=== PATIENT | female | born 1995 | race Caucasian/White ===

== ENCOUNTER 2016-05-21 18:16 | Emergency (ER) | payer OTHER ==
[~2016-05-21] VITALS: Ht 160 cm; Wt 53.6 kg
[2016-05-21 18:19] VITALS: Ht 160 cm; Wt 53.6 kg
[2016-05-21] MEDS ORDERED: ONDANSETRON INJ 2 MG/ML 2 ML VIAL IV STA (18:43)
[2016-05-21] MEDS ORDERED: SODIUM CHLORIDE 0.9% 1000ML 1,000 ML IV STA (18:43)
[2016-05-21] MEDS ORDERED: PRZC/10 PO (18:52)
[2016-05-21 19:04] VITALS: O2SAT 99
[2016-05-21 19:09] LABS: BASO % 0.2 %; BASO ABS # 0.03 K/uL (0-0.2); COMPLETE YES; EOS % 0.2 %; HEMATOCRIT 39.6 % (37-47); IG% 0.3 %; LYMPH % 10.7 %; LYMPH ABS # 1.39 K/uL (1.2-3.4); MEAN CELL VOLUME 82.3 fL (80-100); MEAN CORPUSCULAR HEMOGLOBIN 28.3 pg (25-34); MEAN CORPUSCULAR HGB CONC 34.3 g/dl (32-36); MEAN PLATELET VOLUME 9.2 fL (7.4-10.4); MONO % 10.9 %; NEUT % 77.7 %; PLATELET COUNT 382 K/uL (130-400); RED BLOOD COUNT 4.81 M/uL (4.2-5.4); WHITE BLOOD COUNT 12.97 K/uL (4.8-10.8)
[2016-05-21 19:12] LABS: URINE APPEARANCE CLEAR (CLEAR); URINE COLOR DK YELLOW; URINE NITRITE NEG (NEG); URINE PH 5.5 (4.5-7.5); URINE SPECIFIC GRAVITY 1.027 (1.000-1.030); UROBILINOGEN NEG (NEG)
[2016-05-21 19:13] LABS: MANUAL MICROSCOPIC REQUIRED? NO; REVIEW REQ? NO
--- NOTE | 2016-05-21 19:13 | DIAGNOSTIC IMAGING REPORT ---
CHEST ONE VIEW PORTABLE HISTORY: Overdose COMPARISON: None. FINDINGS: The lungs are clear. Cardiac silhouette is normal in size. No pleural effusions. No pneumothorax. IMPRESSION: No acute process. Electronically signed by: Kenyon Parmar M.D. 05/21/2016 7:11 PM Dictated Date/Time: 05/21/2016 7:10 PM
[2016-05-21 19:14] LABS: URINE BILIRUBIN NEG (NEG)
[2016-05-21 19:17] LABS: INR 0.9 (0.9-1.1); PARTIAL THROMBOPLASTIN RATIO 0.9; PROTHROMBIN TIME (PATIENT) 10.1 SECONDS (9.0-12.0)
[2016-05-21 19:29] LABS: BENZODIAZEPINE, URINE NEG (NEG); COCAINE,URINE POS (NEG); PHENCYCLIDINE, URINE NEG (NEG)
[2016-05-21 19:31] LABS: ALT/SGPT 19 U/L (12-78); AST/SGOT 12 U/L (15-37); BLOOD UREA NITROGEN 8 mg/dl (7-18); CALCIUM 9.1 mg/dl (8.5-10.1); CARBON DIOXIDE 26 mmol/L (21-32); CHLORIDE 104 mmol/L (98-107); CREATININE 0.75 mg/dl (0.60-1.20); GLUCOSE 129 mg/dl (70-99); POTASSIUM 3.4 mmol/L (3.5-5.1); SODIUM 142 mmol/L (136-145)
[2016-05-21 19:36] LABS: ALKALINE PHOSPHATASE 102 U/L (45-117); CKMB/CK RATIO 1.3 (0-3.0)
[2016-05-21 19:45] LABS: ACETAMINOPHEN < 2 ug/ml (10-30)
[2016-05-21] MEDS ORDERED: LORAZEPAM 2 MG/ML 1 ML VIAL IV STA (20:17)
--- NOTE | 2016-05-21 20:29 | EMERGENCY ROOM VISIT NOTE ---
History Report prepared by Jameel: Angelica Mendez Under the Supervision of: Dr. Dawood Shelby D.O. First contact with patient: 18:31 Chief Complaint: OTHER COMPLAINT Stated Complaint: DIZZY,TOOK UNKNOWN SUBSTANCES LASTNIGHT,[place] History of Present Illness The patient is a 20 year old female who presents to the Emergency Room with complaints of persistent auditory and visual hallucinations that started around 1800 last night. Associated symptoms include persistent shaking. The patient took multiple different drugs at a concert last night. These drugs include cocaine and acid. She was also drinking alcohol. The patient states that she has taken these drugs in the past but the affects usually wear off after a few hours. She admits to cocaine use multiple times a month. She last took acid a year ago. The patient believes that what she took last night was synthetic acid. She currently takes Prozac regularly as prescribed. She denies IV drug use. Source of History: patient Onset: 1800 last night Position: other (Global ) Timing: other (Persistent ) Modifying Factors (Relieving): other (None) Note: Additional associated symptoms include persistent shaking. Review of Systems See HPI for pertinent positives & negatives. A total of 10 systems reviewed and were otherwise negative. Past Medical & Surgical Medical Problems: (1) Concussion Family History Cancer Lung disease Social History Smoking Status: Never Smoker Alcohol Use: heavy Drug Use: cocaine, other (Acid) Marital Status: single Housing Status: lives with friends Occupation Status: employed, student Current/Historical Medications Scheduled Fluoxetine Hcl (Prozac), 30 MG PO DAILY Allergies Coded Allergies: No Known Allergies (Unverified , 05/21/16) Physical Exam Vital Signs Date Time Temp Pulse Resp B/P Pulse Ox O2 Delivery O2 Flow Rate FiO2 05/21/16 20:47 36.2 83 23 121/78 99 05/21/16 20:44 121/78 05/21/16 20:21 83 23 99 05/21/16 20:16 77 13 100 05/21/16 19:46 88 13 100 05/21/16 19:30 92 05/21/16 19:04 99 Room Air 05/21/16 18:58 118/82 05/21/16 18:56 91 18 118/82 99 Room Air 05/21/16 18:19 36.2 86 16 143/88 98 Room Air Physical Exam CONSTITUTIONAL/VITAL SIGNS: Reviewed / noted above. GENERAL: Non-toxic in appearance. INTEGUMENTARY: Warm, dry, and [place]. HEAD: Normocephalic. EYES: without scleral icterus or trauma. ENT/OROPHARYNX: slightly dry mucous membranes. clear. LYMPHADENOPATHY/NECK: Is supple without lymphadenopathy or meningismus. RESPIRATORY: Lungs clear and equal. CARDIOVASCULAR: Regular rate and rhythm. GI/ABDOMEN: Soft and nontender. No organomegaly or pulsatile mass. No rebound or guarding. Normal bowel sounds. EXTREMITIES: Warm and well perfused. BACK: No CVA tenderness. NEUROLOGICAL: Intact without focal deficits. PSYCHIATRIC: normal affect. MUSCULOSKELETAL: Normally developed with good muscle tone. Medical Decision & Procedures ER Provider Diagnostic Interpretation: X ray results and stated below per my interpretation and radiology interpretation. CHEST ONE VIEW PORTABLE HISTORY: Overdose COMPARISON: None. FINDINGS: The lungs are clear. Cardiac silhouette is normal in size. No pleural effusions. No pneumothorax. IMPRESSION: No acute process. Electronically signed by: Kenyon Parmar M.D. 05/21/2016 7:11 PM Dictated Date/Time: 05/21/2016 7:10 PM Laboratory Results 05/21/16 18:52 Red Blood Count 4.81, Mean Corpuscular Volume 82.3, Mean Corpuscular Hemoglobin 28.3, Mean Corpuscular Hemoglobin Concent 34.3, Mean Platelet Volume 9.2, Neutrophils (%) (Auto) 77.7, Lymphocytes (%) (Auto) 10.7, Monocytes (%) (Auto) 10.9, Eosinophils (%) (Auto) 0.2, Basophils (%) (Auto) 0.2, Neutrophils # (Auto ) 10.08, Lymphocytes # (Auto) 1.39, Monocytes # (Auto) 1.41, Eosinophils # (Auto ) 0.02, Basophils # (Auto) 0.03 05/21/16 18:52 Test 05/21/16 18:45 05/21/16 18:52 Urine Color DK YELLOW Urine Appearance CLEAR (CLEAR) Urine pH 5.5 (4.5-7.5) Urine Specific [place] 1.027 (1.000-1.030) Urine Protein TRACE (NEG) Urine Glucose (UA) NEG (NEG) Urine Ketones 1+ (NEG) Urine Occult Blood 3+ (NEG) Urine Nitrite NEG (NEG) Urine Bilirubin NEG (NEG) Urine Urobilinogen NEG (NEG) Urine Leukocyte Esterase NEG (NEG) Urine WBC (Auto) 0 /hpf (0-5) Urine RBC (Auto) 0-4 /hpf (0-4) Urine Hyaline Casts (Auto) 0 /lpf (0-5) Urine Epithelial Cells (Auto) 10-20 /lpf (0-5) Urine Bacteria (Auto) NEG (NEG) Urine Test NEG (NEG) Urine Opiates Screen NEG (NEG) Urine Methadone, Qualitative NEG (NEG) Urine Barbiturates NEG (NEG) Urine Phencyclidine (PCP) Level NEG (NEG) Ur Amphetamine/Methamphetamine POS (NEG) MDMA (Ecstasy) Screen NEG (NEG) Urine Benzodiazepines Screen NEG (NEG) Urine Cocaine Metabolite POS (NEG) Urine Marijuana (THC) POS (NEG) White Blood Count 12.97 K/uL (4.8-10.8) Red Blood Count 4.81 M/uL (4.2-5.4) Hemoglobin 13.6 g/dL (12.0-16.0) Hematocrit 39.6 % (37-47) Mean Corpuscular Volume 82.3 fL (80-100) Mean Corpuscular Hemoglobin 28.3 pg (25-34) Mean Corpuscular Hemoglobin Concent 34.3 g/dl (32-36) Platelet Count 382 K/uL (130-400) Mean Platelet Volume 9.2 fL (7.4-10.4) Neutrophils (%) (Auto) 77.7 % Lymphocytes (%) (Auto) 10.7 % Monocytes (%) (Auto) 10.9 % Eosinophils (%) (Auto) 0.2 % Basophils (%) (Auto) 0.2 % Neutrophils # (Auto) 10.08 K/uL (1.4-6.5) Lymphocytes # (Auto) 1.39 K/uL (1.2-3.4) Monocytes # (Auto) 1.41 K/uL (0.11-0.59) Eosinophils # (Auto) 0.02 K/uL (0-0.5) Basophils # (Auto) 0.03 K/uL (0-0.2) RDW Standard Deviation 43.9 fL (36.4-46.3) RDW Coefficient of Variation 14.5 % (11.5-14.5) Immature Granulocyte % (Auto) 0.3 % Immature Granulocyte # (Auto) 0.04 K/uL (0.00-0.02) Prothrombin Time 10.1 SECONDS (9.0-12.0) Prothromb Time International Ratio 0.9 (0.9-1.1) Activated Partial Thromboplast Time 23.6 SECONDS (21.0-31.0) Partial Thromboplastin Ratio 0.9 Anion Gap 12.0 mmol/L (3-11) Est Creatinine Clear Calc Drug Dose 98.9 ml/min Estimated GFR () 133.0 Estimated GFR (Non- 114.7 BUN/Creatinine Ratio 11.0 (10-20) Calcium Level 9.1 mg/dl (8.5-10.1) Total Bilirubin 0.9 mg/dl (0.2-1) Direct Bilirubin 0.2 mg/dl (0-0.2) Aspartate Amino Transf (AST/SGOT) 12 U/L (15-37) Alanine Aminotransferase (ALT/SGPT) 19 U/L (12-78) Alkaline Phosphatase 102 U/L (45-117) Total Creatine Kinase 93 U/L (26-192) Creatine Kinase MB 1.2 ng/ml (0.5-3.6) Creatine Kinase MB Ratio 1.3 (0-3.0) Troponin I < 0.015 ng/ml (0-0.045) Total Protein 7.7 gm/dl (6.4-8.2) Albumin 4.1 gm/dl (3.4-5.0) Lipase 92 U/L (73-393) Salicylates Level < 1.7 mg/dl (2.8-20) Acetaminophen Level < 2 ug/ml (10-30) Ethyl Alcohol mg/dL < 3.0 mg/dl (0-3) Laboratory results as stated above per my review. Medications Administered Medications (Trade) Dose Ordered Sig/Neno Route Start Time Stop Time Status Last Admin Dose Admin Sodium Chloride (Nss 1000ml) 1,000 ml @ 999 mls/hr Q1H1M STAT IV 05/21/16 18:43 05/21/16 19:43 DC 05/21/16 19:10 999 MLS/HR Ondansetron HCl (Zofran Inj) 4 mg NOW STAT IV 05/21/16 18:43 05/21/16 18:47 DC 05/21/16 19:11 4 MG Lorazepam (Ativan Inj) 1 mg NOW STAT IV 05/21/16 20:17 05/21/16 20:18 DC 05/21/16 20:26 1 MG ECG Indication: toxicologic Rate (beats per minute): 83 Rhythm: normal sinus Findings: no ectopy, other (No acute injury ) ED Course 1831: Previous medical records were reviewed. The patient was evaluated in room C7. A complete history and physical examination was performed. 1842: Ordered Zofran Injection 2 mg IV, Sodium Chloride 1,000 ml @ 999 mls/hr IV. 2017: Ordered Ativan Injection 1 mg IV. 2020: I discussed today's findings with the patient. I warned her of the risks of cocaine and acid use. The patient is feeling better at this time. She is prepared for discharge home. Medical Decision Differential includes overdose on Tylenol/aspirin/ethanol, ethylene glycol, methanol, prescribed medications, not prescribe medications/street drugs, metabolic process, traumatic process. This a 20-year-old female who presents to the ED with a chief complaint of polysubstance abuse and feeling slightly agitated hearing and seeing things like as if she still on the acid. She used the acid around 6 PM yesterday. In addition to this she used cocaine and alcohol. She also uses marijuana regularly. The patient states that she is hearing some voices that sound like echoes of her friends voices last night. She is also having some visual abnormalities as if she is still on acid. She feels a little shaky. The patient denies any other significant complaints. No fevers or recent illness. No trauma. She denies any abdominal pains, vomiting, diarrhea. No chest pains or shortness of breath. Laboratory studies included a white blood count of 12.97. Complete metabolic panel was unremarkable. Twelve-lead EKG reveals a sinus rhythm at a rate of 83. No acute injury or ectopy. A troponin is negative. Urine reveals 1+ ketones. She is not . Drug screen is positive for amphetamine, marijuana and cocaine. Alcohol is negative. The patient was given Ativan 1 mg IV for her symptoms. She was told results the test. She is felt to be stable for discharge and outpatient follow-up. Impression Primary Impression: Polysubstance abuse Additional Impression: Anxiety Scribe Attestation The scribe's documentation has been prepared under my direction and personally reviewed by me in its entirety. I confirm that the note above accurately reflects all work, treatment, procedures, and medical decision making performed by me. Departure Information Dispostion Home / Self-Care Patient Instructions My [facility] Additional Instructions Avoid all recreational substances. Return for any concerns. Go to the nearest ER for any worsening or new symptoms. Problem Qualifiers
[2016-05-21 20:47] VITALS: BP 121/78; PULSE 83; TEMP 36.2; O2SAT 99
[2016-05-25 14:54] LABS: COCAINE, URINE >50000 NG/ML (CUTOFF=100)
== END 2016-05-21 20:51 | disposition home or self-care (01) ==
LOC: C.EDB 18:18 → C.EDC 20:51
DX: F19.10 Other psychoactive substance abuse, uncomplicated (principal); F41.9 Anxiety disorder, unspecified